=== PATIENT | female | born 1965 | race Hispanic/Latino ===

== ENCOUNTER 2023-07-31 09:54 | Emergency (ER) | payer BC ==
[~2023-07-31] VITALS: Ht 162.6 cm; Wt 81.6 kg
[2023-07-31 09:55] VITALS: PULSE 70
[2023-07-31] MEDS ORDERED: KETOROLAC 30MG VIAL (30MG/ML) IVP ONE (10:30)
[2023-07-31] MEDS ORDERED: FAMOTIDINE 20MG VIAL IV ONE (10:30)
[2023-07-31] MEDS ORDERED: CYCL5TAB PO (11:23)
[2023-07-31] MEDS ORDERED: IBUP-2070 PO (11:23)
[2023-07-31] MEDS ORDERED: DIAZEPAM 5 MG TABLET PO ONE (11:30)
[2023-07-31 12:08] VITALS: BP 138/70; RESP 14; O2SAT 95
== END 2023-07-31 12:25 | disposition home or self-care (01) ==
LOC: EDH 09:54
DX: S39.012A Strain of muscle, fascia and tendon of lower back, initial encounter (principal); Z90.49 Acquired absence of other specified parts of digestive tract; W01.10XA Fall on same level from slipping, tripping and stumbling with subsequent striking against unspecified object, initial encounter; Y93.89 Activity, other specified; Y92.89 Other specified places as the place of occurrence of the external cause; Y99.8 Other external cause status
CPT/HCPCS: 99284; 96374; 71045; 96375; 73552; 72100; 72170; J3490; J1885